=== PATIENT | female | born 1990 | race Caucasian/White ===

== ENCOUNTER 2016-10-02 11:03 | Emergency (ER) | payer OTHER ==
[~2016-10-02] VITALS: Ht 170.2 cm; Wt 73.6 kg
[~2016-10-02 11:03] MED LIST: CLARITIN10 M3 PO; FLINTSTONES1 EACH PO; MOTRIN800 MG PO; NOHOMEMEDS; NORCO 5/3251 TABLET PO
[2016-10-02 12:21] LABS: HEMATOCRIT 42.8 % (36.0-46.0); MCH 26.9 PG (29.0-34.0); MCHC 33.6 G/DL (30.0-36.0); MEAN PLAT.VOLUME 9.8 uM^3 (9.5-12.4); PLATELET COUNT 228 K/uL (156-360); RBC DIS.WIDTH-CV 13.3 % (11.8-14.6); RBC DIS.WIDTH-SD 38.5 % (39-53); RED BLOOD COUNT 5.35 M/uL (3.80-5.20); WHITE BLOOD COUNT 6.4 K/uL (4.1-10.2)
[2016-10-02 12:38] LABS: CHLORIDE 108 mEq/L (99-109); POTASSIUM 3.8 mEq/L (3.7-5.4); SODIUM 140 mEq/L (136-147)
[2016-10-02 12:40] LABS: GLUCOSE 95 mg/dL (70-99)
[2016-10-02 12:41] LABS: ANION GAP 11 MEQ/L (2-14)
[2016-10-02 12:42] LABS: TOTAL BILIRUBIN 0.2 mg/dL (0.0-1.0)
[2016-10-02 12:44] LABS: ALKALINE PHOSPHATASE 62 IU/L (3-129); GFR ESTIMATE (CALCULATED) > 59 mL/min/
[2016-10-02 12:45] LABS: UREA NITROGEN (BUN) 6 mg/dL (9-23)
[2016-10-02 12:48] LABS: LIPASE 21 U/L (1.0-51.0)
[2016-10-02 12:52] LABS: ADD MIUA? YES; BILIRUBIN NEGATIVE; BLOOD MODERATE; COLOR YELLOW ((YELLOW)); GLUCOSE (STRIP) NEGATIVE; KETONES 5; LEUKOCYTES LARGE; NITRITE NEGATIVE; PROTEIN (STRIP) 30; SPECIFIC GRAVITY 1.024 (1.000-1.030); UROBILINOGEN 0.2 MG/DL (0.2-1.0)
[2016-10-02 13:00] LABS: BACTERIA RARE /HPF; EPITHELIAL CELLS RARE /HPF; MUCUS TRACE /LPF; WHITE BLOOD CELLS 20-30 /HPF (0-5)
[2016-10-02] MEDS ORDERED: ZOFRAN ODT4 MG PO (13:36)
[2016-10-02] MEDS ORDERED: KEFLEX500 MG PO (13:36)
[2016-10-02 14:18] VITALS: BP 128/96
== END 2016-10-02 14:21 | disposition home or self-care (01) ==
LOC: EME 11:03
PROVIDERS: Nurse Practitioner Family
DX: J10.1 Influenza due to other identified influenza virus with other respiratory manifestations (principal); R11.2 Nausea with vomiting, unspecified; N39.0 Urinary tract infection, site not specified
CPT/HCPCS: 80053; 81003; 83690; 85027; 87086; 99281; 99284; J1885; J2405; J7030

== ENCOUNTER 2018-01-27 08:25 | Emergency (ER) | payer OTHER ==
[~2018-01-27] VITALS: Ht 170.2 cm; Wt 70.4 kg
[~2018-01-27 08:25] MED LIST changes: +KEFLEX500 MG PO; +ZOFRAN ODT4 MG PO
[2018-01-27 09:16] LABS: APPEARANCE SL.HAZY ((CLEAR)); BILIRUBIN NEGATIVE; BLOOD NEGATIVE; COLOR YELLOW ((YELLOW)); GLUCOSE (STRIP) NEGATIVE; KETONES 5; LEUKOCYTES LARGE; NITRITE NEGATIVE; PROTEIN (STRIP) 30; SPECIFIC GRAVITY 1.027 (1.000-1.030); UROBILINOGEN 0.2 MG/DL (0.2-1.0)
[2018-01-27 09:17] LABS: HEMOGLOBIN 13.3 G/DL (11.9-15.5); MCH 27.7 PG (29.0-34.0); MCHC 33.3 G/DL (30.0-36.0); MCV 83.2 FL (83-99); PLATELET COUNT 303 K/uL (156-360); RBC DIS.WIDTH-CV 13.1 % (11.8-14.6); RBC DIS.WIDTH-SD 39.8 % (39-53); RED BLOOD COUNT 4.81 M/uL (3.80-5.20); WHITE BLOOD COUNT 10.6 K/uL (4.1-10.2)
[2018-01-27 09:24] LABS: BACTERIA RARE /HPF; CALCIUM OXALATE CRYSTALS 1+ /HPF; EPITHELIAL CELLS 2+ /HPF; MUCUS TRACE /LPF; RED BLOOD CELLS 0-5 /HPF (0-5); WHITE BLOOD CELLS TNTC /HPF (0-5)
[2018-01-27 09:30] LABS: ALBUMIN 4.2 g/dL (3.2-4.8); CHLORIDE 106 mEq/L (99-109); POTASSIUM 4.2 mEq/L (3.7-5.4); SODIUM 140 mEq/L (136-147)
[2018-01-27 09:33] LABS: GLUCOSE 97 mg/dL (70-99); TOTAL PROTEIN 7.4 g/dL (6.4-8.3)
[2018-01-27 09:35] LABS: TOTAL BILIRUBIN 0.3 mg/dL (0.0-1.0)
[2018-01-27 09:36] LABS: ALKALINE PHOSPHATASE 57 IU/L (3-129); CREATININE 1.1 mg/dL (0.6-1.3); GFR ESTIMATE (CALCULATED) > 59 mL/min/
[2018-01-27 09:37] LABS: UREA NITROGEN (BUN) 7 mg/dL (9-23)
[2018-01-27 09:38] LABS: AST (GOT) 13 IU/L (2-34)
[2018-01-27 09:39] LABS: ALT (GPT) 10 IU/L (3-49)
[2018-01-27 09:40] LABS: LIPASE 26 U/L (1.0-51.0)
[2018-01-27 09:46] LABS: QUANTITATIVE HCG < 4.0 MIU/ML
[2018-01-27] MEDS ORDERED: KEFLEX500 MG PO (11:29)
[2018-01-27 11:54] VITALS: BP 120/66
== END 2018-01-27 11:55 | disposition home or self-care (01) ==
LOC: EME 08:25
PROVIDERS: Nurse Practitioner Family
DX: N39.0 Urinary tract infection, site not specified (principal); D27.1 Benign neoplasm of left ovary; D27.0 Benign neoplasm of right ovary; R10.32 Left lower quadrant pain; F17.200 Nicotine dependence, unspecified, uncomplicated
CPT/HCPCS: 74177; 80053; 81003; 83690; 84702; 85027; 87086; 99281; 99284; J7030